=== PATIENT | female | born 1990 | race Asian ===

== ENCOUNTER 2018-05-25 05:24 | Day surgery (SDC) | payer BC ==
[2018-05-24 17:12] VITALS: BMI 26.2
[2018-05-25] MEDS ORDERED: BUPIVACAINE HCL/PF 0.5% (5MG/ML) 10 ML VIAL ONE (13:42)
[2018-05-25] MEDS ORDERED: ONDANSETRON 4 MG/2 ML VIAL IVPUSH PRN ×2 (13:51→17:06)
[2018-05-25] MEDS ORDERED: oxyCODONE HCL 5 MG TABLET PO PRN ×2 (13:51→17:06)
[2018-05-25] MEDS ORDERED: LACTATED RINGERS SOLUTION 1,000 ML IV SCH (14:00)
[2018-05-25] MEDS ORDERED: PROPOFOL 20 ML ONE (14:36)
[2018-05-25] MEDS ORDERED: ROCURONIUM BROMIDE 50 MG/5 ML VIAL ONE (14:36)
[2018-05-25] MEDS ORDERED: fentaNYL CITRATE 250 MCG/5 ML VIAL ONE (14:36)
[2018-05-25] MEDS ORDERED: MIDAZOLAM HCL 2 MG/2 ML SINGLE DOSE VIAL ONE (14:36)
--- NOTE | 2018-05-25 14:51 | HP ---
History & Physical Update - Physical Physical: No Change - Assessment Assessment: No Change - Plan Plan: No Change (H&P reviwed ,no changes , for laparoscopy LT ovarian cystectomy )
[2018-05-25] MEDS ORDERED: ceFAZolin SODIUM 1 GM VIAL IVPB ONE (15:06)
[2018-05-25] MEDS ORDERED: METHYLENE BLUE 1% 10 MG/1 ML VIAL NR ONE (15:08)
[2018-05-25] MEDS ORDERED: DESFLURANE GAS 240 ML BOTTLE IH ONE (16:04)
[2018-05-25] MEDS ORDERED: NEOSTIGMINE METHYLSULFATE 0.5 MG/ML - 10 ML MDV ONE (16:15)
[2018-05-25] MEDS ORDERED: GLYCOPYRROLATE 0.2 MG/1 ML VIAL ONE (16:15)
[2018-05-25] MEDS ORDERED: ACETAMINOPHEN INJECTION 100 ML IVPB ONE (17:05)
[2018-05-25] MEDS ORDERED: ELECTROLYTE-148 SOLN 1,000 ML IV SCH (17:15)
[2018-05-25] MEDS ORDERED: ACETAMINOPHEN 1000 MG/100 ML VIAL (NON FORMULARY) IVPB ONE (17:15)
[2018-05-25] MEDS ORDERED: ONDANSETRON 4 MG/2 ML VIAL ONE (19:31)
[2018-05-25 20:11] VITALS: BP 118/72; PULSE 78; TEMP 97.6
--- NOTE | 2018-05-25 21:04 | OP ---
DATE OF OPERATION: 05/25/2018 PREOPERATIVE DIAGNOSES: Pelvic pain, left ovarian cyst. POSTOPERATIVE DIAGNOSES: Pelvic pain, left ovarian cyst, pelvic adhesions, endometriosis. PROCEDURE: Laparoscopy, lysis of pelvic adhesion, chromotubation, and left ovarian cystectomy. SURGEON: Irving Red MD FIRST CALENDER WORKER: Rodrigo Magdaleno MD ANESTHESIA: General. ANESTHESIOLOGIST: Xavier Chamorro MD ESTIMATED BLOOD LOSS: 100 mL. OPERATION: The patient was taken to the operating room under adequate general anesthesia in dorsal lithotomy position. Examination under anesthesia revealed external genitalia to be normal, vagina was normal. Cervix was clean, no gross lesion. The uterus sounded to 7 cm, anteverted. Adnexa, no masses were palpable. Then, with a weighted speculum in the vagina, anterior lip of the cervix was grasped using tenaculum. HUMI catheter was inserted into the uterine cavity and attached to the tube for chromotubation. Velazquez was inserted. Patient was placed in dorsal lithotomy position. A small infraumbilical skin incision was made. Veress needle was introduced, pneumoperitoneum established. A 5-mm trocar was introduced through the umbilical area under direct vision and then pneumoperitoneum established. Under direct vision, a 5-mm trocar was introduced through the right hypogastric, and a 10-mm through the left hypogastric area. Visualization of upper abdomen showed to be normal. Pelvic area, there was adhesion of both ovaries and a part of the left fimbria of the left tube to the cul-de-sac area. Cul-de-sac was adherent to the posterior uterus. There was some old dark bloody discharge noted in the cul-de-sac area. The left ovary was also adherent to the colon, with multiple adhesion bands. These bands were lysed with cautery and then, meticulously, the ovary and adhesions were lysed from the colon and posterior cul-de-sac. At this time, the endometriotic cyst was entered and large amount of dark blood was discharged. Then the ovary was opened in the midportion and the cyst wall was removed in its entirety. Then the ovarian edges were cauterized with the bipolar cautery and hemostasis was established. Then pelvic cavity several times irrigated and no active bleeding was seen. All the fluid was suctioned and then Interceed was placed around the left ovary and the cul-de-sac area. Abdomen was emptied of all the gases and port incisions were closed with interrupted suture of 2-0 Vicryl and then with 4-0 Biosyn interrupted suture. The left hypogastric area was closed with Apollo-Sunday needles. The fascia was brought together and no defect was seen, and then skin was closed with 4-0 Biosyn interrupted suture. Patient tolerated procedure well, left the OR in good condition. The chromotubation, which was done during the procedure, showed patent both fallopian tubes with extravasation of the methylene blue into the pelvic cavity from the tubes. Prashant [id number]
--- NOTE | 2018-05-31 14:51 | PATH ---
Surgical Pathology Report Patient Name: LOIS HALL [facility]. Rec. #: [id number] /Age/Gender: 1990 (Age: 28) / F Account: [id number] Location: [facility] SURGICAL Taken: 05/25/2018 Received: 05/26/2018 Reported: 05/31/2018 Physicians: Irving Red M.D. Specimen(s) Received A: FIBROUS TISSUE ADHESION B: PORTION OF LEFT OVARY C: LEFT OVARY CYST D: ADHESION Clinical History Left ovarian cyst Final Diagnosis A. FIBROUS TISSUE ADHESION, EXCISION: FIBROUS TISSUE WITH OLD HEMORRHAGE (HEMOSIDERIN-LADEN MACROPHAGES). B. PORTION OF LEFT OVARY, EXCISION: OVARIAN TISSUE WITH ENDOMETRIOSIS. SEE COMMENT. C. LEFT OVARIAN CYST, EXCISION: OVARIAN TISSUE WITH ENDOMETRIOSIS. SEE COMMENT. D. ADHESION, EXCISION: FIBROUS TISSUE WITH FOCAL RECENT AND OLD HEMORRHAGE (HEMOSIDERIN-LADEN MACROPHAGES), ENDOMETRIOSIS . Comment: Immunohistochemical stain CD10 (on block B1 and C1) performed at [place], [place] ([id number]) interpreted at [facility] highlights the endometrial stroma. Positive and negative controls (internal if applicable) show appropriate results. Electronically Signed Juanis Russo M.D. Gross Description A. Received in formalin labeled "fibrous tissue adhesion," is a 1.8 x 1.7 x 0.1 cm aggregate of riley-brown tissue fragments, consistent with fibrous adhesions. The specimen is submitted in toto in one cassette. B. Received in formalin labeled "portion of left ovary," is a 1.8 x 0.6 x 0.2 cm portion of riley-stevens soft tissue, possibly consistent with a portion of ovary. The specimen is submitted in toto in one cassette. C. Received in formalin labeled "left ovarian cyst," is a 2.5 x 2.2 x 0.3 cm aggregate of multiple riley-brown portions of soft tissue, possibly consistent with portions of an ovarian cyst. The specimen is submitted in toto in one cassette. D. Received in formalin labeled "adhesion," is a 0.7 cm in greatest dimension brown soft tissue fragment. The specimen is submitted in toto in one cassette. DL05/29/2018 saudi05/29/2018
== END 2018-05-25 20:23 | disposition home or self-care (01) ==
LOC: JASU-SURG 05:24
PROVIDERS: ATTEND Obstetrics & Gynecology
PROC: 3E0P3KZ Introduction of Other Diagnostic Substance into Female Reproductive, Percutaneous Approach (ICD-10-PCS; 2018-05-25)
PROC: 0UB14ZZ Excision of Left Ovary, Percutaneous Endoscopic Approach (ICD-10-PCS; principal; 2018-05-25 15:00)
DX: N83.202 Unspecified ovarian cyst, left side (principal); N80.3 Endometriosis of pelvic peritoneum
CPT/HCPCS: 84703; 88304-TC; 88305-TC; 94760; J0131